=== PATIENT | female | born 1960 | race Caucasian/White ===

== ENCOUNTER → 2016-06-18 | Outpatient (CLI) | payer BC ==
--- NOTE | 2016-06-18 13:47 | RAD ---
PROCEDURE MRI lumbar spine without contrast HISTORY Sacral in low pelvic pain TECHNIQUE Sagittal axial T1 and T2 and sagittal STIR images were acquired lumbar spine Contrast: COMPARISON None FINDINGS There is grade 1 anterior spondylolisthesis at L4-5 at which there is facet degenerative change. Lumbar vertebral body stature is adequate. There is mild degenerative disc disease at L4-5, mild disc desiccation L5-S1 and also very minimally of more superior levels. Conus terminates at L1-2. There is trace right L4-5 endplate edema likely reactive/degenerative in etiology. There are small anterior annular tears at L2-3 and L3-4. L1-L2: Spinal canal and neural foramina are adequate. L2-L3: Spinal canal and neural foramina are adequate. L3-4: Spinal canal and neural foramina are adequate. L4-5: There is moderate facet degenerative change and mild buckling of the ligamentum flavum. Spinal canal and neural foramina are adequate. L5-S1: Spinal canal is adequate. There is moderate bilateral facet hypertrophic change with fluid in facet articulations bilaterally. There is minimal narrowing of the left neural foramen, right neural foramen overall adequate. There is hemangioma of the L5 vertebral body. IMPRESSION 1. There is no significant lumbar spinal stenosis. There is minimal narrowing of the left L5-S1 neural foramen. There is grade 1 anterior spondylolisthesis at L4-5 at which there is facet degenerative change. There is mild degenerative disc disease at L4-5, other minimal disc desiccation. Electronically signed by: Rajesh Cochran MD (Jun 18, 2016 13:47:03)
--- NOTE | 2016-06-18 14:25 | RAD ---
PROCEDURE MRI right shoulder without contrast dated 06/18/2016. HISTORY Pain and lump at right AC joint. TECHNIQUE Routine multiplanar multisequence MR imaging performed. COMPARISON None. FINDINGS Study is limited due to motion artifact and poor signal. There is a lobulated T2 hyperintense focus along the margin of the distal clavicle that measures 1.6 x 1.4 x 0.8 centimeters extending along the anterior superior margin of the joint space. Mild to moderate hypertrophic change of the AC joint with mild undersurface spurring. Trace amount of subacromial/subdeltoid bursal fluid. Acromion type 1 morphology. Intermediate T2 signal throughout the supraspinatus and infra spinatus portions of the rotator cuff. Mild articular and bursal surface fraying of the anterior supraspinatus. No full thickness tear or retracted tear. Increased signal and thickening of the subscapularis which is otherwise intact. Mild hypertrophic change of the glenohumeral joint. Mild thinning and surface irregularity of the glenoid articular cartilage. Blunted morphology of the anterior and posterior labrum. No discrete labral tear or paralabral cyst. No joint effusion or loose body. Increased signal of the proximal long head biceps tendon. Extra-articular portion courses within the bicipital groove. Biceps anchor intact. IMPRESSION - Lobulated T2 hyperintense nodule along the anterior superior margin of the AC Joint. This most likely represents a subchondral cyst or ganglion cyst. - Mild AC joint arthropathy with undersurface spurring. Recommend clinical correlation for impingement syndrome. - Moderate rotator cuff tendinopathy with no evidence of full-thickness tear. - Mild proximal biceps tendinosis. 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 No apparent labral tear. Electronically signed by: Wei Roman (Jun 18, 2016 14:24:54)
== END | disposition home or self-care (01) ==
LOC: MRI 12:29
PROVIDERS: ATTEND Physician Assistant Medical
DX: M25.511 Pain in right shoulder (principal); M43.16 Spondylolisthesis, lumbar region; M51.36 Other intervertebral disc degeneration, lumbar region
CPT/HCPCS: 72148; 73221